=== PATIENT | female | born 1955 | race Two or more races ===

== ENCOUNTER → 2017-05-06 | Outpatient (CLI) | payer OTHER | LOC: FIMAGING 11:11 | PROVIDERS: ATTEND Orthopaedic Surgery Orthopaedic Surgery of the Spine | DX: M43.16 Spondylolisthesis, lumbar region (principal); M51.36 Other intervertebral disc degeneration, lumbar region ==

== ENCOUNTER → 2017-05-14 | Outpatient (CLI) | payer OTHER | LOC: FIMAGING 14:58 | PROVIDERS: ATTEND Orthopaedic Surgery Orthopaedic Surgery of the Spine | DX: M21.372 Foot drop, left foot (principal); M54.16 Radiculopathy, lumbar region; Z98.1 Arthrodesis status ==

== ENCOUNTER 2017-05-15 08:16 | Inpatient (IN) | payer OTHER ==
[2017-05-15] MEDS ORDERED: BISACODYL 10 MG SUPP PR PRN (12:45)
[2017-05-15] MEDS ORDERED: MAGNESIUM HYDROXIDE 30 ML UDCUP PO PRN (12:45)
[2017-05-15] MEDS ORDERED: LACTULOSE 20 GM/30 ML UDCUP PO PRN (12:45)
[2017-05-15] MEDS ORDERED: POLYETHYLENE GLYCOL 3350 17 GM PKT PO PRN (12:45)
[2017-05-15] MEDS ORDERED: ONDANSETRON 4 MG/2 ML VIAL IVP PRN (12:48)
[2017-05-15] MEDS ORDERED: ONDANSETRON DISINTEGRATING 4 MG TAB PO PRN (12:48)
[2017-05-15] MEDS ORDERED: diphenhydrAMINE 25 MG CAP PO PRN (12:48)
[2017-05-15] MEDS: ACETAMINOPHEN 500 MG TAB PO SCH ×2 (13:41→21:52)
[2017-05-15 13:59] LABS: HEMATOCRIT 28.2 % (38.0-47.0); HEMOGLOBIN 9.4 g/dL (12.6-16.3)
--- NOTE | 2017-05-15 14:04 | GHP ---
[f rep st] PREOP HISTORY AND PHYSICAL DATE OF ADMISSION: 05/15/2017 HISTORY: The patient is a pleasant 61-year-old woman, well known to my practice. She is 4 days sta tus post an L4-5 laminectomy, complete facetectomy, and transforaminal lumbar interbody fusion with posterior fusion and instrumentation. For a grade 2 degenerative spondylolisthesis with left lower extremity pain. Patient was seen in my office yesterday for drain removal and complained of quite s ignificant left lower extremity pain. She does have weakness in her left EHL. She also has a posit maya straight leg raising test; therefore, a CT scan of the lumbar spine was ordered to evaluate the instrumentation. The left L5 pedicle screw is inferiorly placed, touching the left L5 nerve root. She is being admitted and will be brought to the operating room for revision left-sided L4-5 instrum entation and pain control. The patient has been admitted in advance, given that her pain has not be en able to be controlled at home on numerous medications. She has no signs of infection and no loss of bowel or bladder control. On a 1-10 scale, she rates her pain a 9. PAST MEDICAL HISTORY: Negative. PAST SURGICAL HISTORY: Significant for the aforementioned L4-5 laminectomy, transforaminal lumbar i nterbody fusion, and posterior fusion with instrumentation. SOCIAL HISTORY: Negative for tobacco. Negative for alcohol. ALLERGIES: None. MEDICATIONS: Include MS Contin 30 mg 1 p.o. q.12 hours, Percocet 5 mg 1-2 every 6 hours p.r.n. pain , Valium 5 mg 1 p.o. q.8 hours p.r.n. muscle spasms, Neurontin 300 mg 1 p.o. b.i.d. PHYSICAL EXAMINATION: CONSTITUTIONAL: The patient is a well-developed, well-nourished, very pleasa nt woman to interact with. She is alert and oriented x3. CARDIAC: Regular rate and rhythm without detectable murmur, rub, or gallop. LUNGS: Clear to auscu ltation. She does not have any wheezing or rhonchi. ABDOMEN: Benign. NEUROLOGIC: Strength of bilateral lower extremities 5/5 throughout. The left tibialis anterior is 4+/5 and left EHL is 0/5. Straight leg raising is mildly positive on the left. Homans test is nega tive x2 for DVT. RADIOGRAPHIC STUDIES: CT scan done yesterday shows a left L5 pedicle screw inferiorly placed to the pedicle causing compression of the left L5 nerve root. IMPRESSION: 1. Four days status post L4-5 laminectomy, transforaminal lumbar interbody posterior fusion with in strumentation for grade 2 degenerative spondylolisthesis. 2. Severe left lower extremity radiculopathy with malposition of left L5 pedicle screw. PLAN: The patient is being admitted for pain control today and is scheduled for surgery 8 a.m. braydon rrow morning for revision of the left L5 pedicle screw. She will be n.p.o. after midnight tonight. Potential risks, benefits, and possible complications have been thoroughly discussed with the patie nt including, but not limited to, dural tear with CSF leak, meningitis, nerve root injury, cauda equ santos syndrome, lack of improvement of symptomatology, breakage or pullout of internal fixation, inabi lity to obtain fixation at the L5 level, infection, junctional breakdown, nonunion, need for further surgery, as well as DVT, PE, pneumonia, stroke, heart attack, hemorrhage, blindness, and . Dandy hernández's questions have been answered thoroughly. Again, she will be n.p.o. after midnight tonight. Copy requested to: [address] [place] [address] Alonzo #: [id number]
[2017-05-15] MEDS: DIAZEPAM 5 MG TAB PO PRN (14:16)
[2017-05-15] MEDS: oxyCODONE IR 5 MG TAB PO PRN ×2 (15:35→16:46)
[2017-05-15] MEDS ORDERED: HYDROmorphONE/DILAUDID 1 MG/ML SYR IVP PRN (17:27)
[2017-05-15] MEDS: SENNOSIDES/DOCUSATE SODIUM TAB PO SCH (20:23)
[2017-05-15] MEDS: NS 1,000 ML IV SCH (20:24)
[2017-05-15] MEDS: morphINE SR 15 MG TAB PO SCH (21:52)
[2017-05-15] MEDS: GABAPENTIN 300 MG CAP PO SCH (21:52)
[2017-05-16] MEDS: oxyCODONE IR 5 MG TAB PO PRN ×4 (01:55→18:23)
[2017-05-16 05:30] LABS: ANION GAP 5 mEq/L (8-16); CALCIUM 8.5 mg/dL (8.5-10.4); CARBON DIOXIDE 25 mEq/l (22-31); CHLORIDE 102 mEq/L (97-110); CREATININE 0.6 mg/dL (0.6-1.0); GLOMERULAR FILTRATION RATE > 60; GLUCOSE 90 mg/dL (70-100); POTASSIUM 4.5 mEq/L (3.5-5.2); SODIUM 132 mEq/L (134-144)
[2017-05-16] MEDS: ACETAMINOPHEN 500 MG TAB PO SCH ×3 (06:12→21:14)
[2017-05-16] MEDS ORDERED: THROMBIN (BOVINE) 20,000 UNIT SPRAY TP ONE (07:37)
[2017-05-16] MEDS ORDERED: BACITRACIN 50,000 UNITS/10 ML SYR IRR ONE (07:38)
[2017-05-16] MEDS ORDERED: THROMBIN (BOVINE) 5,000 UNIT VIAL TP ONE (07:38)
[2017-05-16] MEDS ORDERED: CITRATE DEXTROSE SOLN 500 ML BAG ONE (07:38)
[2017-05-16] MEDS ORDERED: LR 1,000 ML IV ONE (07:44)
[2017-05-16] MEDS ORDERED: CEFAZOLIN 2 GM/DEXTROSE/100 ML BAG IV ONE (07:45)
--- NOTE | 2017-05-16 07:54 | PDHPUP ---
History & Physical Update H&P update statement: This history and physical update is based on an assessment of the patient which was completed after admission or registration (within 24 hours), but prior to the surgery/procedure. H&P update: H&P reviewed & patient examined, no change in patient's condition since H&P completed
[2017-05-16] MEDS ORDERED: THROMBIN (BOVINE) 20,000 UNIT VIAL TP ONE (07:57)
--- NOTE | 2017-05-16 07:59 | PDANEPAE ---
ANE History of Present Illness Neuropathy S/P spinal fusion 5 days ago--needs hardware revision ANE Past Medical History - Cardiovascular History Hx Hypertension: No Hx Arrhythmias: No Hx Chest Pain: No Hx Coronary Artery / Peripheral Vascular Disease: No Hx CHF / Valvular Disease: No Hx Palpitations: No - Pulmonary History Hx COPD: No Hx Asthma/Reactive Airway Disease: No Hx Recent Upper Respiratory Infection: No Hx Oxygen in Use at Home: No - Endocrine History Hx Diabetes: No Hypothyroid: No Hyperthyroid: No ANE Review of Systems - Systems Constitutional: Reports: no symptoms (Took no meds prior to surgery 05/11) ANE Patient History - Allergies Allergies/Adverse Reactions: morphine Allergy (Intermediate, Verified 05/16/17 07:20) - Home Medications Home Medications: Diazepam [Valium 5 MG (*)] 5 mg PO Q8 PRN 05/15/17 [Last Taken 05/14/17] Docusate Sodium [Colace 100 MG (*)] 100 mg PO TID 05/15/17 [Last Taken 05/14/17 19:00] Gabapentin [Neurontin 300 MG (*)] 300 mg PO BID 05/15/17 [Last Taken 05/15/17 06 :00] Ondansetron Odt [Zofran Odt 4 mg (*)] 4 mg PO Q4 PRN 05/15/17 [Last Taken Unknown] Sennosides [Ex-Lax] 15 mg PO DAILY PRN 05/15/17 [Last Taken 05/14/17 19:00] morphINE SR [MS Contin/Oramorph SR 30 mg (*)] 30 mg PO BID 05/15/17 [Last Taken 05/15/17 06:00] oxyCODONE/APAP 5/325 [Percocet 5/325 (*)] 1 tab PO Q4H PRN 05/15/17 [Last Taken 05/15/17 10:00] - NPO status NPO Since - Liquids (Date): 05/15/17 NPO Since - Liquids (Time): 21:45 NPO Since - Solids (Date): 05/15/17 NPO Since - Solids (Time): 20:30 - Smoking Hx Smoking Status: Never smoked ANE Labs/Vital Signs - Labs Result Diagrams: 05/15/17 13:50 05/16/17 04:25 - Vital Signs Blood Pressure: 108/56 Heart Rate: 71 Respiratory Rate: 14 O2 Sat (%): 90 Height: 152.4 cm Weight: 66.224 kg ANE Physical Exam - Airway Mallampati Score: Class 2 Mouth exam: normal dental/mouth exam - Pulmonary Pulmonary: no respiratory distress - Cardiovascular Cardiovascular: regular rate and rhythym, no murmur, rub, or gallop - ASA Status ASA Status: II ANE Anesthesia Plan Anesthesia Plan: general endotracheal anesthesia
[2017-05-16] MEDS ORDERED: ceFAZolin 2 GM/DEXTROSE 100 ML IV ONE (08:00)
[2017-05-16] MEDS ORDERED: fentaNYL 100 MCG/2 ML INJ ONE ×4 (08:09→11:07)
[2017-05-16] MEDS ORDERED: DEXAMETHASONE 4 MG/ML VIAL ONE ×2 (08:10→08:57)
[2017-05-16] MEDS ORDERED: SUCCINYLCHOLINE CHLORIDE*ANESTHESIA ONLY*200 MG/10 ML SYR IVP ONE (08:10)
[2017-05-16] MEDS ORDERED: LIDOCAINE 2% 5 ML SDV ONE (08:10)
[2017-05-16] MEDS ORDERED: PROPOFOL 200 MG/20 ML VIAL ONE ×2 (08:10→09:30)
[2017-05-16] MEDS ORDERED: ONDANSETRON 4 MG/2 ML VIAL ONE (08:10)
[2017-05-16] MEDS ORDERED: BUPIVACAINE 0.25% 30 ML SDV ONE (08:50)
[2017-05-16] MEDS ORDERED: KETAMINE 100 MG/10 ML SYR ONE (09:10)
[2017-05-16] MEDS ORDERED: ENALAPRILAT DIHYDRATE 1.25 MG/ML VIAL IVP PRN (09:13)
[2017-05-16] MEDS ORDERED: PROMETHAZINE HCL 25 MG/ML INJ IVP PRN (09:13)
[2017-05-16] MEDS ORDERED: MEPERIDINE 25 MG/ML SYR IVP PRN (09:13)
[2017-05-16] MEDS ORDERED: ONDANSETRON 4 MG/2 ML VIAL IVP PRN (09:13)
[2017-05-16] MEDS ORDERED: LR 500 ML IV PRN (09:13)
[2017-05-16] MEDS ORDERED: NALOXONE HCL 0.4 MG/ML INJ IVP PRN (09:13)
[2017-05-16] MEDS ORDERED: METOCLOPRAMIDE 10 MG/2 ML VIAL IVP PRN (09:13)
[2017-05-16] MEDS ORDERED: LABETALOL HCL 5 MG/ML 20 ML MDV IVP PRN (09:13)
[2017-05-16] MEDS ORDERED: PHENYLEPHRINE HCL 100 MCG/ML SYR ONE (09:48)
--- NOTE | 2017-05-16 10:26 | POSTOPPROG ---
Post Op Note Date of Operation: 05/16/17 Surgeon: Elinor Nichols Ground Layer: Maxime Dawson SA Anesthesiologist: MD Courtney Anesthesia: GET(General Endotracheal) Pre-op Diagnosis: Left sciatica, malposition L L5 pedicle screw Post-op Diagnosis: same Indication: Left severe sciatica Procedure: Removal L L4-5 post instrum, exploration L L5 nerve, augment bone fusion Findings: Malpositioned L L5 pedicle screw Inf/Abcess present in the surg proc area at time of surgery?: No Depth: Deep Incisional (Fascial) EBL: 100 cc Total fluids administered: 900 cc Complications: None. No permanent changes in neuromonitoring. Drains: [place] Wood
[2017-05-16] MEDS: fentaNYL 100 MCG/2 ML INJ IVP PRN ×3 (11:08→11:29)
[2017-05-16] MEDS ORDERED: HYDROmorphONE/DILAUDID 2 MG/ML INJ ONE (11:28)
[2017-05-16] MEDS: HYDROmorphONE/DILAUDID 1 MG/ML SYR IVP PRN ×5 (11:31→12:11)
--- NOTE | 2017-05-16 11:38 | POSTANESTH ---
Post Anesthetic Evaluation Cardiovascular Status: Normal, Stable, Similar to Pre-Op Cond Respiratory Status: Normal, Stable, Similar to Pre-op Cond. Level of Consciousness/Mental Status: Can Participate in Eval, Mildly Sleepy, Arousable Pain Control: Inadeq, Add Tx Required Nausea/Vomiting Control: Adequate, Prn Tx Ordered Complications Possibly Related to Anesthesia: None Noted (Comfortable upon PACU arrival, but needed additional analgesia within an hour.)
[2017-05-16] MEDS: GABAPENTIN 300 MG CAP PO SCH ×3 (13:11→21:14)
[2017-05-16] MEDS: SENNOSIDES/DOCUSATE SODIUM TAB PO SCH ×2 (13:12→19:14)
[2017-05-16] MEDS: morphINE SR 15 MG TAB PO SCH ×2 (13:12→21:14)
[2017-05-16] MEDS: DIAZEPAM 5 MG TAB PO PRN (19:13)
--- NOTE | 2017-05-16 21:02 | GOP ---
[f rep st] OPERATIVE REPORT DATE OF OPERATION: 05/16/2017 SURGEON: Elinor Valles MD PBX INSPECTOR: Anton Dawson SA. ANESTHESIA: General endotracheal intubation. ANESTHESIOLOGIST: Butch Valdez MD. PREOPERATIVE DIAGNOSIS: 1. Five days status post L4-L5 laminectomy, transforaminal lumbar interbody fusion, posterior fusio n with instrumentation for grade 2 degenerative spondylolisthesis. 2. Acute postoperative left severe sciatica. 3. Malposition left L5 pedicle screw. POSTOPERATIVE DIAGNOSIS: 1. Five days status post L4-L5 laminectomy, transforaminal lumbar interbody fusion, posterior fusio n with instrumentation for grade 2 degenerative spondylolisthesis. 2. Acute postoperative left severe sciatica. 3. Malposition left L5 pedicle screw. PROCEDURE PERFORMED: 1. Exploration of left L5 nerve root. 2. Removal of left L4 and L5 posterior instrumentation. 3. Attempted reposition of left L5 pedicle screw. 4. Augmentation of left L4-5 posterolateral arthrodesis with crushed cancellous allograft and demin eralized bone matrix. FINDINGS: Malposition, left L5 pedicle screw. Intact left L5 nerve root. ESTIMATED BLOOD LOSS: 100 cc. INDICATIONS: The patient is a pleasant 61-year-old woman, well known to my practice. Five days ago , she underwent an L4-5 laminectomy, transforaminal lumbar interbody fusion, posterior fusion with i nstrumentation for a grade 2 degenerative spondylolisthesis. At the time of that surgery, her left L5 pedicle screw stimulated to 19 milliamps with intraoperative neural monitoring. However, postope ratively, she developed severe left lower extremity pain and weakness. A CT scan was obtained. Thi s showed the left L5 pedicle screw to be inferior and slightly medial, touching the left L5 nerve ro ot and displacing it. Due to the severity of pain and malposition of screw, surgery was indicated. No guarantees were given in regard to surgical outcome. Potential risks, benefits, and possible co mplications were thoroughly discussed including, but not limited to, dural tear with CSF leak, menin gitis, nerve root injury, lack of improvement of symptomatology including pain and motor strength, c auda equina syndrome, foot drop, need for further surgery, nonunion, DVT, PE, pneumonia, stroke, hea rt attack, hemorrhage, blindness, and . DESCRIPTION OF PROCEDURE: After obtaining both written and verbal consent from the patient, she was brought to the operating room where she underwent a general endotracheal intubation. The patient r eceived 2 g of Ancef IV preoperatively. Mullen catheter was placed. Patient was rolled to the prone position after intubation on the Urbano table. All 4 extremities were padded well. The face and eyes were padded per the anesthesiologist. The lumbar spine was prepped and draped in the normal st erile fashion. A timeout was performed for the entire operating room team, confirming patient's nam e, date of , planned surgical procedure including level and side, allergies to medications and antibiotics given. After a sterile prep and drape of the posterior lumbar spine, the previous incision was opened up wi th a 10 blade knife. The incision was opened up through the subcutaneous tissues and sutures were r emoved. The cerebellars were placed for retraction. There was a small amount of hematoma but no ev idence of infection. The posterior instrumentation was identified at L4-5. At this time, the locki ng caps on the left at L4 and L5 were removed. Then the janeen was removed. Using neural monitoring, including somatosensory-evoked potentials, motor evoked potentials, and EMGs, the left L4 pedicle sc rew was stimulated and stimulated to 20 milliamps. The left L5 screw was also stimulated to greater than 20 milliamps. The left L5 screw was then removed with a screwdriver. The ball-tipped probe w as then used to palpate its pathway. It did show soft-tissue inferiorly. Therefore, under loupe ma gnification, using basic anatomic landmarks in the midline of the transverse process and the interse ction of the lateral border of the facet joint on the left at L5, a 3 mm round bur was then used to create a new fire pilot hole. A gearshift was used to palpate down to a depth of approximately 45 mm. T his stimulated to 20 milliamps. However, when it was removed, the ball-tipped probe again was used to palpate the new proposed site, and again there was soft tissue and not good purchase of the pedic le. It should be noted that, at the time of her primary surgery, the exact same thing continued to happen and difficulty of the placement of the left L5 screw was quite apparent and difficult. Numer ous attempts were made repositioning the starting point just proximal approximately 3 mm and lateral about 1 mm from the initial screw site, and numerous attempts were unsuccessful at obtaining good c ircumferential bone around the entire proposed screw site. Even though the neuro monitoring stimula siomara well, the palpation of the proposed screw site did not show good bone circumferentially througho ut the entire depth. A 5.5 x 50 mm screw had been attempted once, and although stimulated reasonabl y well, was removed as it did not have good purchase. Therefore, at this time, it was determined to remove the left L4 pedicle screw to remove the entire left-sided posterior instrumentation and go w ith a unilateral fixation on the right side, given the patient has PEEK cages as a transforaminal catrina mbar interbody fusion bilaterally for stability. The patient and her family were told of this possi bility in advance. The ball-tip probe was utilized to palpate the left L4 pedicle screw site, and i t did show good bone circumferentially around the entire depth. Then under loupe magnification agai n, the prior laminectomy was enlarged distally, and the left L5 nerve root was identified and was fo und to be completely intact without any cerebral spinal fluid leakage or dural tear. At this time, 15 cc of crushed cancellous allograft, in addition to 10 cc of demineralized bone matrix were mixed together and packed in the posterolateral position on the left, given some of this had been removed in order to facilitate the surgery. This was to augment the previous arthrodesis. A 10 flat ZARA stefan in was placed deep to the fascial layer and sewn into the skin level with a 2-0 nylon. After hemost asis was obtained with bipolar cautery and thrombin-soaked Gelfoam, pieces of dried Gelfoam were kimmy ly over the dura to protect it. The wound was closed using a #1 Vicryl in the deep fascial layer, followed by an 0 Vicryl in the subcutaneous layer, and skin chandra. 20 cc of 0.25% Marcaine were u sed to infiltrate the subcutaneous layers for some additional pain control. Sterile dressing was ap plied. The ZARA drain was connected to the bulb suction. The patient was then rolled to the supine p osition, and her back brace was placed. She was extubated in the operating room. Mullen catheter wa s left in. She was brought to the recovery room in satisfactory condition. DRAINS: One 10 flat ZARA drain. POSTOPERATIVE PLAN: Close neurologic observation, close airway observation. PT, OT and pain contro swapna. /[id number]/MODL
[2017-05-17] MEDS: oxyCODONE IR 5 MG TAB PO PRN ×3 (01:42→10:33)
[2017-05-17] MEDS: NS 1,000 ML IV SCH (01:49)
[2017-05-17] MEDS: ACETAMINOPHEN 500 MG TAB PO SCH ×3 (05:50→22:36)
[2017-05-17] MEDS: SENNOSIDES/DOCUSATE SODIUM TAB PO SCH ×2 (08:18→19:33)
[2017-05-17] MEDS: GABAPENTIN 300 MG CAP PO SCH ×2 (08:18→19:34)
[2017-05-17] MEDS: morphINE SR 15 MG TAB PO SCH ×2 (08:18→19:33)
--- NOTE | 2017-05-17 12:33 | SOAPPROG ---
SOAP Progress Note Assessment/Plan: Assessment: post op day 1, s/p revision surg (removal L L4-5 instrumentation). Pt doing much better with regard to Left leg pain. Plan: 05/17/17 12:28 Cont PT and OT. Anticipate probable d/c to home tomorrow. Subjective: Pt states Left leg pain is 70% better. Still has burning. Objective: Vital Signs Temp Pulse Resp BP Pulse Ox 36.8 C 67 16 116/61 85 L 05/17/17 08:07 05/17/17 08:07 05/17/17 08:07 05/17/17 08:07 05/17/17 11:48 Laboratory Results 05/15/17 13:50 05/16/17 04:25 05/16/17 05/17/17 05/18/17 05:59 05:59 05:59 Intake Total 950 4470 Output Total 500 3030 Balance 450 1440 BLE motor 5/5 except Left TA 4+/5, L EHL 0/5. Clifford's negative x 2. SLR negative x 2. Drain functioning properly. ICD10 Worksheet Patient Problems: Problems Problem Status Onset Left sciatica s/p fusion Acute
[2017-05-18] MEDS: oxyCODONE IR 5 MG TAB PO PRN ×2 (04:31→13:47)
[2017-05-18] MEDS: ACETAMINOPHEN 500 MG TAB PO SCH ×3 (05:27→21:32)
[2017-05-18] MEDS: GABAPENTIN 300 MG CAP PO SCH ×2 (09:35→21:31)
[2017-05-18] MEDS: SENNOSIDES/DOCUSATE SODIUM TAB PO SCH ×2 (09:36→21:32)
[2017-05-18] MEDS: morphINE SR 15 MG TAB PO SCH ×2 (09:36→21:32)
--- NOTE | 2017-05-18 12:36 | SOAPPROG ---
SOAP Progress Note Assessment/Plan: Assessment: post op day 1, s/p revision surg (removal L L4-5 instrumentation). Pt doing much better with regard to Left leg pain. Plan: 05/17/17 12:28 Cont PT and OT. Anticipate probable d/c to home tomorrow. 05/18/17 12:35 post op day 2, s/p Removal L L4-5 post instrumentation for LLE post op radic. Improving. Plan: Cont PT (stairs) and OT. Will discharge to home tomorrow. Subjective: Pt complains of burning L lat thigh. Overall LLE feels better. Objective: Vital Signs Temp Pulse Resp BP Pulse Ox 36.8 C 68 14 112/60 90 L 05/18/17 07:32 05/18/17 07:32 05/18/17 07:32 05/18/17 07:32 05/18/17 07:32 Laboratory Results 05/15/17 13:50 05/16/17 04:25 05/17/17 05/18/17 05/19/17 05:59 05:59 05:59 Intake Total 4470 400 Output Total 3030 695 Balance 1440 -295 No change in neuro exam. Drain still in place. ICD10 Worksheet Patient Problems: Problems Problem Status Onset Left sciatica s/p fusion Acute
[2017-05-18 15:21] VITALS: RESP 16
[2017-05-18] MEDS ORDERED: GABAPENTIN 400 MG CAP PO SCH (21:00)
[2017-05-18] MEDS: DIAZEPAM 5 MG TAB PO PRN (23:28)
[2017-05-19] MEDS: oxyCODONE IR 5 MG TAB PO PRN (05:58)
[2017-05-19] MEDS: ACETAMINOPHEN 500 MG TAB PO SCH ×2 (05:58→15:06)
[2017-05-19] MEDS: SENNOSIDES/DOCUSATE SODIUM TAB PO SCH (08:03)
[2017-05-19] MEDS: morphINE SR 15 MG TAB PO SCH (08:04)
[2017-05-19] MEDS: GABAPENTIN 300 MG CAP PO SCH (08:04)
[2017-05-19 15:28] VITALS: BP 80/41; PULSE 76; TEMP 98.4; O2SAT 91
--- NOTE | 2017-05-19 16:42 | SOAPPROG ---
SOAP Progress Note Assessment/Plan: Assessment: post op day 1, s/p revision surg (removal L L4-5 instrumentation). Pt doing much better with regard to Left leg pain. Plan: 05/17/17 12:28 Cont PT and OT. Anticipate probable d/c to home tomorrow. 05/18/17 12:35 post op day 2, s/p Removal L L4-5 post instrumentation for LLE post op radic. Improving. Plan: Cont PT (stairs) and OT. Will discharge to home tomorrow. 05/19/17 16:40 post op day 3. Ready for discharge to home. Subjective: Pt states left leg pain is about 75% better than prior to second surgery. Objective: Vital Signs Temp Pulse Resp BP Pulse Ox 36.9 C 76 16 80/41 L 91 L 05/19/17 15:25 05/19/17 15:25 05/19/17 15:25 05/19/17 15:25 05/19/17 15:25 Laboratory Results 05/15/17 13:50 05/16/17 04:25 05/18/17 05/19/17 05/20/17 05:59 05:59 05:59 Intake Total 400 700 Output Total 695 225 Balance -295 475 BLE motor 5/5 except Left TA 4+/5 and EHL 2-/5 (improved). Clifford's negative. SLR positive on left. Wound clean and dry. Some blistering due to tape. ICD10 Worksheet Patient Problems: Problems Problem Status Onset Left sciatica s/p fusion Acute
--- NOTE | 2017-05-19 16:54 | PDIAF ---
- Diagnosis Code Status: Full Code - Medication Management Discharge Medications: Medications to Continue on Transfer Docusate Sodium [Colace 100 MG (*)] 100 mg PO TID 05/15/17 [Last Taken 05/14/17 19:00] Sennosides [EX-LAX] 15 mg PO DAILY PRN 05/15/17 [Last Taken 05/14/17 19:00] oxyCODONE/APAP 5/325 [Percocet 5/325 (*)] 1 tab PO Q4H PRN 05/15/17 [Last Taken 05/15/17 10:00] Diazepam [Valium 5 MG (*)] 5 mg PO HS PRN #0 tab 05/19/17 [Last Taken Unknown] Gabapentin [Neurontin 300 MG (*)] 600 mg PO BID #60 cap 05/19/17 [Last Taken Unknown] morphINE SR [Ms Contin/Oramorph 15 mg (*)] 15 mg PO BID #40 tab 05/19/17 [Last Taken Unknown] oxyCODONE IR [Oxycodone Ir (*)] 5 - 10 mg PO Q4HRS PRN #0 tab 05/19/17 [Last Taken Unknown] Discharge Medications: Refer to the Discharge Home Medication list for PRN reason. PICC Care - Routine: N/A - Orders Services needed: Physical Therapy, Occupational Therapy Home Care Face to Face: 05/19/17 Diet Recommendation: no restrictions on diet Diet Texture: Regular Texture Diet Activity/Weight Bearing Restrictions: wt bear as tolerated. NO bending, lifting , twisting. Equipment: walker - Follow Up Care Current Providers and Referrals: MICHELLE QURESHI MD [Other] Elinor Nichols MD [Medical Doctor] -
--- NOTE | 2017-05-20 05:26 | GDS ---
[f rep st] DISCHARGE SUMMARY HOSPITAL COURSE: The patient is a pleasant 61-year-old woman well known to my practice. She was 4 days status post an L4-5 laminectomy, transforaminal lumbar interbody fusion with posterior fusion a nd instrumentation for grade 2 degenerative spondylolisthesis. Postoperatively, the patient develop ed severe worsening left lower extremity pain. A CT scan showed a malposition of the left L5 pedicl e screw. She was admitted for pain control and then ultimately underwent surgery the day after admi ssion, which was an exploration of the wound, removal of the left L4-L5 construct, and exploration o f left L5 nerve root. I was unable to place a new well-positioned left L5 screw, and therefore it w as decided to remove the entire left-sided construct given she does have a PEEK cage bilaterally at L4-5 for additional stability and that the right L4-5 instrumentation was in good position and well purchased. Postoperatively, a drain had been placed in the wound, and this was ultimately removed o n the day of discharge. Her wound was clean, dry, and intact. She did have some blistering from th e tape but no sign of infection. Postoperatively, her left lower extremity strength improved mildly , but her pain markedly improved. I have her on gabapentin 600 mg b.i.d., which I think is benefici al, as well. Patient is being discharged to home on MS Contin 15 mg p.o. b.i.d., as well as her Per cocet that she has from home 1 every 6 hours p.r.n. for breakthrough pain and Valium 5 mg 1 p.o. q.h .s., which she also has at home in (p.r.n. muscle spasms). Patient has an appointment to come to my office on June 02 at 11 o'clock for wound inspection and p ossible removal of chandra. She and her and family know that she is to call my office immed iately or go to the nearest emergency room if they have any concerns about possible complications. She is being scheduled for home physical therapy and occupational therapy to assist her with continu ed rehabilitation efforts. She is tolerating a regular diet. She has urinated and had a bowel move ment. /[id number]/MODL
== END 2017-05-19 17:22 | disposition home health service (06) | DRG 517 ==
LOC: F3N 12:20
PROVIDERS: ADMIT Orthopaedic Surgery Orthopaedic Surgery of the Spine; ATTEND Orthopaedic Surgery Orthopaedic Surgery of the Spine
DX: T84.226A Displacement of internal fixation device of vertebrae, initial encounter (principal); T85.848A Pain due to other internal prosthetic devices, implants and grafts, initial encounter; M54.16 Radiculopathy, lumbar region; M54.42 Lumbago with sciatica, left side; Z98.1 Arthrodesis status
CPT/HCPCS: 97116-GP; 97161-GP; 97165-GO; 97530-GO; 97530-GP; 97535-GO; C1713; C1762; J0330; J0690; J1100; J1170; J2370; J2405; J2704; J3010; J7060

== ENCOUNTER 2017-06-09 14:24 | Emergency (ER) | payer OTHER ==
[2017-06-09 14:33] VITALS: TEMP 98.1
--- NOTE | 2017-06-09 15:17 | EDPHY ---
HPI/HX/ROS/PE/MDM Narrative: CHIEF COMPLAINT: Left leg swelling and pain HPI: The patient is a 62-year-old female who is approximately 4 weeks status post lumbar fusion surgery. She complains of left calf swelling and pain for approximately that same amount of time. She denies chest pain or shortness of breath. She denies fever. She denies recent injury. She was evaluated by Dr. Nichols, her spine surgeon, earlier today. She sent her to the ER to get an ultrasound to rule out DVT. Patient has no history of DVT. REVIEW OF SYSTEMS: Aside from elements discussed in the HPI, a comprehensive 10-point review of systems was reviewed and is negative. PMH: Recent lumbar spine surgery. No history of blood clots. SOCIAL HISTORY: . Denies alcohol or drug abuse. PHYSICAL EXAM: General:Patient is alert, in no acute distress. ENT:Eyes are normal to inspection. ENT inspection normal. Neck: Normal inspection. Full range of motion. Respiratory:No respiratory distress. Breath sounds normal bilaterally. Cardiovascular: Regular rate and rhythm. Strong peripheral pulses. Normal cap refill. Abdomen:The abdomen is nontender to palpation. There are no peritoneal signs. There are normal bowel sounds. Back: Normal to inspection. No tenderness to palpation. Skin: Normal color. No rash. Warm and dry. Extremities: Left lower extremity: Have mild swelling throughout lower leg. Mild posterior calf tenderness. No cords palpable. Distal pulses and capillary refill normal. Neuro: Oriented x3. Normal motor function. Normal sensory function. MDM: This patient presents with isolated left calf pain and is found to have a DVT on ultrasound. The DVT is rather small and below the popliteal fossa. There is no evidence of chest pain or shortness of breath to suggest PE. I think the patient would benefit from treatment with Xarelto. I called and spoke with Dr. Nichols to alert her of the finding. The patient understands that she needs to follow up with her primary physician for further anticoagulation. - Data Points Imaging Results: Imaging Impressions Lumbar Spine X-Ray 06/09/17 12:01 Impression: Status post diskectomy and fusion at L4-L5. Extremity Venous Study 06/09/17 15:12 Impression: There is deep venous thrombosis involving one of the 2 posterior tibial veins in the midcalf. Findings were discussed with Sg Otero MD at 16:06, on 06/09/2017. Imaging: Discussed imaging studies w/ crew caller Radiologist, I viewed and interpreted images myself General Time Seen by Provider: 06/09/17 15:07 Initial Vital Signs: Initial Vital Signs Temperature (C) 36.7 C 06/09/17 14:30 Heart Rate 65 06/09/17 14:30 Respiratory Rate 16 06/09/17 14:30 Blood Pressure 109/61 06/09/17 14:30 O2 Sat (%) 95 06/09/17 14:30 O2 Delivery Mode Room Air Allergies/Adverse Reactions: No Known Allergies Allergy (Unverified 06/09/17 14:30) Home Medications: Medication Instructions Recorded Docusate Sodium [Colace 100 MG (*)] 100 mg PO TID 05/15/17 Sennosides [EX-LAX] 15 mg PO DAILY PRN 05/15/17 oxyCODONE/APAP 5/325 [Percocet 1 tab PO Q4H PRN 05/15/17 5/325 (*)] Diazepam [Valium 5 MG (*)] 5 mg PO HS PRN #0 tab 05/19/17 Gabapentin [Neurontin 300 MG (*)] 600 mg PO BID #60 cap 05/19/17 morphINE SR [Ms Contin/Oramorph 15 15 mg PO BID #40 tab 05/19/17 mg (*)] oxyCODONE IR [Oxycodone Ir (*)] 5 - 10 mg PO Q4HRS PRN #0 tab 05/19/17 Rivaroxaban [Xarelto 15mg (*)] 15 mg PO BID 21 Days 06/09/17 Departure - Departure Disposition: Home, Routine, Self-Care Clinical Impression: DVT of axillary vein, acute left, Left sciatica s/p fusion Condition: Good Instructions: Deep Venous Thrombosis (ED) Additional Instructions: Take medication as prescribed for the next 21 days. Following this, you will need to be on additional medication. Follow up with her primary care provider within 1 week for further workup, treatment and prescription. Return to the emergency department immediately for chest pain or shortness of breath, or severe back pain, fever or numbness.. Prescriptions: Rivaroxaban [Xarelto 15mg (*)] 15 mg PO BID 21 Days
[2017-06-09 16:35] VITALS: BP 134/58; PULSE 62; RESP 18; O2SAT 93
== END 2017-06-09 16:35 | disposition home or self-care (01) ==
LOC: EDSTATUS 14:24
DX: I82.A12 Acute embolism and thrombosis of left axillary vein (principal); M54.32 Sciatica, left side

== ENCOUNTER 2017-07-23 10:45 | Emergency (ER) | payer OTHER ==
[2017-07-23 10:59] VITALS: RESP 18
--- NOTE | 2017-07-23 11:17 | EDPHY ---
HPI/HX/ROS/PE/MDM Narrative: CHIEF COMPLAINT: Leg pain and swelling HISTORY OF PRESENT ILLNESS: The patient is an anticoagulated and Cypriot- speaking 62 y/o female arriving with her complaining of worsening bilateral leg pain and swelling in the setting of a known left leg DVT diagnosed about 6 weeks ago. She had a lumbar fusion about 2 months and was subsequently diagnosed with a left leg DVT after about 4 weeks of left leg swelling and pain. Her pain and swelling seems to be worsening and is now present in her right leg as well. She reports she is taking her Xarelto appropriately every day. She's been walking a little bit on her own and more while at therapy. She notes sensation of hot flashes this morning. She denies chest pain, dyspnea, or difficulty lying flat. No cardiac history. No fever, chills, chest pain, shortness of breath, palpitations, vomiting, diarrhea, urinary complaints, headache, lightheadedness. REVIEW OF SYSTEMS: Aside from elements discussed in the HPI, a comprehensive 10-point review of systems was reviewed and is negative. PAST MEDICAL HISTORY: Lumbar fusion 05/15/[address] Nichols for spondylolisthesis and sciatica. Left leg DVT 06/09/17- Xarelto SOCIAL HISTORY: Primarily Cypriot-speaking, at bedside, no tobacco. Prior medical records reviewed including surgical admission 05/15/17 for spinal surgery and ED visit 06/09/17 for DVT. VITAL SIGNS: Reviewed by me GENERAL: Well-developed, well-nourished, appears uncomfortable, sitting upright in a back brace, in no respiratory distress. HEENT: Atraumatic. Eyes: No icterus, no injection. Mouth: moist mucous membranes. No erythema or lesions. Neck: supple with no adenopathy. LUNGS: Clear to auscultation bilaterally, no wheezes, rhonchi or rales. CARDIAC: Regular rate and rhythm, no rubs, murmurs or gallops. ABDOMEN: Soft, nontender, nondistended, bowel sounds normal. BACK: No CVA tenderness. EXTREMITIES: No trauma. Bilateral lower leg 2+ pitting edema extending from feet to knee with right worse than left, bilateral calf tenderness and tenseness. Range of motion is normal throughout. Normal distal sensation. Dorsalis pedis and posterior tibial pulses 2+. Brisk capillary refill. NEURO: Alert and oriented, grossly nonfocal. SKIN: Warm and dry, no rash. PSYCHIATRIC: Normal mentation, no agitation. Portions of this note were transcribed by a medical hospital sales. I personally performed a history, physical exam, medical decision making, and confirmed accuracy of information the transcribed note. ED Course: 62-year-old female presenting with bilateral increasing peripheral edema. Patient also does have a history of a DVT on the left and is concerned that it perhaps is problem getting. Basic labs including renal function and troponin and EKG were obtained. Laboratory evaluation does not demonstrate a clear reason for the patient's peripheral edema. No signs of acute renal insufficiency. Negative troponin. Ultrasound demonstrates an unchanged DVT in the left calf, no DVT in the right. 1205: US shows unchanged DVT in left calf veins and no DVT in right leg per Dr. Carrasco. Reassessed patient and discussed these results with the patient and recommended continuing her Xarelto. She will be given a script for Lasix for edema. I also recommended using compression stockings to help with edema. She understands she should follow up with her PCP for unimproved symptoms next week. Return precautions given. She agrees with plan. MDM: Differential diagnosis for the patient's primary complaint of leg swelling was considered including but not limited to cellulitis, hypoalbuminemia, congestive heart failure, cor pulmonale, chronic venous stasis and DVT. - Data Points Imaging Results: Impression: 1. Stable deep venous thrombosis in the left calf posterior tibial vein. 2. No new deep venous thrombosis in the left leg. 3. No deep venous thrombosis in the right leg. Imaging: Discussed imaging studies w/ senior automation engineer Radiologist Laboratory Results: Laboratory Results 07/23/17 11:20 07/23/17 11:20 General Time Seen by Provider: 07/23/17 11:02 Initial Vital Signs: Initial Vital Signs Temperature (C) 36.6 C 07/23/17 10:56 Heart Rate 70 07/23/17 10:56 Respiratory Rate 18 07/23/17 10:56 Blood Pressure 156/91 H 07/23/17 10:56 O2 Sat (%) 95 07/23/17 10:56 O2 Delivery Mode Room Air Allergies/Adverse Reactions: No Known Allergies Allergy (Verified 07/23/17 10:55) Home Medications: Medication Instructions Recorded Docusate Sodium [Colace 100 MG (*)] 100 mg PO TID 06/17/17 Sennosides [EX-LAX] 15 mg PO DAILY PRN 05/15/17 oxyCODONE/APAP 5/325 [Percocet 1 tab PO Q4H PRN 05/15/17 5/325 (*)] Diazepam [Valium 5 MG (*)] 5 mg PO HS PRN #0 tab 05/19/17 Gabapentin [Neurontin 300 MG (*)] 600 mg PO BID #60 cap 05/19/17 morphINE SR [Ms Contin/Oramorph 15 15 mg PO BID #40 tab 05/19/17 mg (*)] oxyCODONE IR [Oxycodone Ir (*)] 5 - 10 mg PO Q4HRS PRN #0 tab 05/19/17 Rivaroxaban [Xarelto 15mg (*)] 15 mg PO BID 21 Days 06/09/17 Furosemide [Lasix] 10 mg PO DAILY #10 tablet 07/23/17 Departure - Departure Disposition: Home, Routine, Self-Care Clinical Impression: Peripheral edema Left leg DVT Qualifiers: Affected thrombotic vein of extremity: unspecified vein of extremity Chronicity : chronic Qualified Code(s): I82.502 - Chronic embolism and 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 Continue taking your Xarelto as prescribed to prevent worsening blood clot. 2. Take Lasix as prescribed to help with leg swelling. I recommend buying compression stockings for both legs and wearing these whenever possible 3. Follow up with your primary care provider next week for continued symptoms. 4. Return to the ED for chest pain, shortness of breath, weakness, or other worsening of condition. 1.Continue tomando alonso Xarelto sisi se le fue recetado para prevenir empeoramiento de alonso coagulo de yumiko. 2. Tonsina Lasix sisi se le fue recetado para ayudar con la hinchazn de deya piernas. Recomend que compre calcetas de compresin para ambas piernas y los use cuando sea posible. 3. Rafy medina bebe de seguimiento con alonso doctor de cabecera la prxima semana si continan los sntomas. 4. Regrese a la gasper de emergencias por dolor de pecho, falta de aire, debilidad o empeoramiento de condicin. Referrals: DR TITUS [Other] - As per Instructions Prescriptions: Furosemide [Lasix] 10 mg PO DAILY #10 tablet Print Language: Cypriot Report Scribed for: Charity Alejandra Report Scribed by: Griselda Mora Date of Report: 07/23/17 Time of Report: 11:18
[2017-07-23 11:31] LABS: % IMMATURE GRANULYOCYTES 0.4 % (0.0-1.1); ABSOLUTE IMMATURE GRANULOCYTES 0.02 10^3/uL (0.00-0.10); ADD DIFF? NO; ADD MORPH? NO; ADD SCAN? NO; ATYPICAL LYMPHOCYTE FLAG 20 (0-99); FRAGMENT RBC FLAG 0 (0-99); HEMATOCRIT 37.7 % (38.0-47.0); HEMOGLOBIN 12.5 g/dL (12.6-16.3); LEFT SHIFT FLG 0 (0-99); LIPEMIA HEMOLYSIS FLAG 80 (0-99); MEAN CELL HEMOGLOBIN CONCENTR. 33.2 g/dL (32.4-36.7); MEAN CELL VOLUME 87.5 fL (81.5-99.8); MEAN PLATELET VOLUME 9.9 fL (8.7-11.7); PLATELET CLUMPS FLAG 10 (0-99); PLATELET COUNT 250 10^3/uL (150-400); RED BLOOD CELL COUNT 4.31 10^6/uL (4.18-5.33); RED CELL DISTRIBUTION WIDTH 14.6 % (11.5-15.2)
[2017-07-23 11:47] LABS: ANION GAP 13 mEq/L (8-16); CALCIUM 9.9 mg/dL (8.5-10.4); CARBON DIOXIDE 22 mEq/l (22-31); CHLORIDE 104 mEq/L (97-110); CREATININE 0.6 mg/dL (0.6-1.0); GLOMERULAR FILTRATION RATE > 60; GLUCOSE 106 mg/dL (70-100); POTASSIUM 3.9 mEq/L (3.5-5.2); SODIUM 139 mEq/L (134-144)
[2017-07-23 11:59] LABS: TROPONIN I < 0.012 ng/mL (0.000-0.034)
--- NOTE | 2017-07-23 12:13 | CPEKG ---
Heart Rate: 65 RR Interval: 923 P-R Interval: 184 QRSD Interval: 92 QT Interval: 432 QTC Interval: 450 P Cordell: 13 QRS Cordell: 85 T Wave Cordell: 46 EKG Severity - ABNORMAL ECG - EKG Impression: SINUS RHYTHM EKG Impression: BORDERLINE RIGHT AXIS DEVIATION EKG Impression: NONSPECIFIC T ABNORMALITIES, ANTERIOR LEADS Electronically Signed By: Charity Alejandra 24-Jul-2017 08:07:36
[2017-07-23 12:45] VITALS: PULSE 68; TEMP 97.7; O2SAT 93
[2017-07-23 12:47] VITALS: BP 133/72
== END 2017-07-23 12:46 | disposition home or self-care (01) ==
DX: I82.502 Chronic embolism and thrombosis of unspecified deep veins of left lower extremity (principal); R60.0 Localized edema; Z79.01 Long term (current) use of anticoagulants